=== PATIENT | male | born 1970 | race African-American/Black ===

== ENCOUNTER 2018-04-26 19:30 | Observation (INO) ==
[2018-04-27 03:31] LABS: Baso % (Auto) 0.7 % (0.0-2.0); Eos # (Auto) 0.2 th/mm3 (0.0-0.4); Eos % (Auto) 3.3 % (0.0-4.0); Hemoglobin 16.7 gm/dL (13.0-17.0); Lymph # (Auto) 2.6 th/mm3 (1.0-4.8); Lymph % (Auto) 50.6 % (9.0-44.0); Mean Corpuscular HGB Conc 35.6 % (32.0-36.0); Mean Corpuscular Hemoglobin 31.3 pg (27.0-34.0); Mean Corpuscular Volume 87.7 fL (80.0-100.0); Mean Platelet Volume 7.8 fL (7.0-11.0); Mono # (Auto) 0.6 th/mm3 (0.0-0.9); Mono % (Auto) 11.4 % (0.0-8.0); Neut # (Auto) 1.8 th/mm3 (1.8-7.7); Platelet Count 177 th/mm3 (150-450); Red Blood Count 5.35 mil/mm3 (4.50-5.90); Red Cell Distribution Width 14.2 % (11.6-17.2); White Blood Count 5.1 th/mm3 (4.0-11.0)
[2018-04-27 03:33] LABS: INR 1.1 Ratio; Prothrombin Time 10.9 sec (9.8-11.6)
--- NOTE | 2018-04-27 03:35 | XR ---
EXAM DATE: 04/27/2018 3:31 AM EDT AGE/SEX: 47 years / Male INDICATIONS: . Short of breath. CLINICAL DATA: This is the patient's initial encounter. Patient reports that signs and symptoms have been present for 1 day and indicates a pain score of 0/10. MEDICAL/SURGICAL HISTORY: None. None. COMPARISON: No prior exams available for comparison. FINDINGS: Cardiomegaly present with mild edema pattern. No significant effusion. No pneumothorax. CONCLUSION: Mild congestive heart failure. Electronically signed by: Donovan Mckeon MD 04/27/2018 3:34 AM EDT
[2018-04-27 03:42] LABS: Alanine Aminotransferase 41 U/L (12-78); Albumin 3.9 g/dL (3.4-5.0); Anion Gap 7 meq/L (5-15); Aspartate Aminotransferase 28 U/L (15-37); Blood Urea Nitrogen 15 mg/dL (7-18); Calcium 8.3 mg/dL (8.5-10.1); Carbon Dioxide 27.2 meq/L (21.0-32.0); Chloride 108 meq/L (98-107); Glomerular Filtration Rate 80 mL/min (>89); Glucose,Random 126 mg/dL (74-106); Potassium 3.4 meq/L (3.5-5.1); Sodium 142 meq/L (136-145)
--- NOTE | 2018-04-27 03:42 | CT ---
EXAM DATE: 04/27/2018 3:13 AM EDT AGE/SEX: 47 years / Male INDICATIONS: Dizziness. CLINICAL DATA: This is the patient's initial encounter. Patient reports that signs and symptoms have been present for 3 days and indicates a pain score of 0/10. MEDICAL/SURGICAL HISTORY: None. None. RADIATION DOSE: 56.35 CTDI (mGy) COMPARISON: No prior exams available for comparison. TECHNIQUE: CT of the head without contrast. Using automated exposure control and adjustment of the mA and/or kV according to patient size, radiation dose was kept as low as reasonably achievable to ob tain optimal diagnostic quality images. DICOM format image data is available electronically for revi ew and comparison. FINDINGS: Cerebrum: The ventricles are normal for age. No evidence of midline shift, mass lesion, hemorrhage or acute infarction. No extraaxial fluid collections are seen. Posterior Fossa: The cerebellum and brainstem are intact. The 4th ventricle is midline. The cerebe llopontine angle is unremarkable. Extracranial: The visualized portion of the orbits is intact. Skull: The calvaria is intact. No evidence of skull fracture. CONCLUSION: 1. No acute intracranial abnormalities. Electronically signed by: Donovan Mckeon MD 04/27/2018 3:41 AM EDT
[2018-04-27 03:46] LABS: Alkaline Phosphatase 62 U/L (45-117); Creatine Kinase 282 U/L (39-308); Total Protein 8.1 g/dL (6.4-8.2)
[2018-04-27 03:49] LABS: Bilirubin,Urine Negative (Negative); Clarity,Urine Clear (Clear); Color,Urine Yellow (Yellw/Straw); Glucose,Urine (UA) Negative (Negative); Leukocyte Esterase,Urine Negative (Negative); Mucus,Urine Few /lpf (Occasional); Nitrite,Urine Negative (Negative); Specific Gravity,Urine 1.025 (1.002-1.035); Squamous Epithelial Cell,Urine <1 /hpf (0-5)
[2018-04-27 03:58] LABS: Creatine Kinase MB 2.3 ng/mL (0.5-3.6)
--- NOTE | 2018-04-27 04:27 | ED ---
[facility] General Chief complaint: Dizziness Stated complaint: Dizzy Time Seen by Provider: 04/27/18 02:56 Source: patient Limitations: no limitations History of Present Illness HPI narrative: The patient is a 47 year old male who presents to the [facility] emergency department with a history of lightheaded sensation with bending over and then standing up that first began on Thursday. He reports that it is associated with a sensation of being short of breath and having a tightening sensation in the center of his chest. He denies having any recent vomiting or diarrhea. He denies having any recent fevers or chills, cough or congestion. The patient reports that his primary care physician is in [place]. He has been in the area for approximately 1 month. He reports that his urine has looked darker than usual and has also had a stronger odor this evening. He denies having any dysuria, urinary frequency, or urinary urgency. He denies having any prior history of hyperlipidemia, hypertension, or diabetes mellitus. He denies smoking. He denies any prior history of coronary artery disease, DVT, or PE. He denies having any lower extremity edema, calf pain, or erythema. On review of systems otherwise, the patient denies having any neck pain, abdominal pain, or neurologic symptoms. Related Data Home Medications Medication Instructions Recorded Confirmed No Known Home Medications 04/27/18 04/27/18 Allergies Allergy/AdvReac Type Severity Reaction Status Date / Time No Known Allergies Allergy Verified 04/26/18 22:05 Review of Systems ROS Unobtainable All other systems reviewed negative except as stated in HPI [facility] Medical History Medical History Patient denies medical problems (Acute) Surgical History Surgical History No history of previous surgery (Acute) Social History Social History Substance History: No History of Abuse Smoking Status: Never smoker How Often Do You Have a Drink Containing Alcohol: Monthly or less Recent Travel in [facility] within the Last 8 Weeks: No Recent Out of Country Travel within the Last 8 Weeks: No Immunization History Tetanus Immunization: Unsure Hx Influenza Vaccine This Season: No Exam Const General: healthy appearing, no acute distress and well developed Nutritional Appearance: well nourished Orientation: alert, awake and oriented x3 HENMT Head: normocephalic and atraumatic Nose: no nasal discharge and no epistaxis Mouth: moist mucous membranes Throat: posterior oropharynx normal Eyes Sclera: normal sclerae Pupils: PERRL Neck Neck: trachea midline and no JVD Resp Effort & Inspection: no use of accessory muscles Auscultation: clear to auscultation bilaterally Cardio Rate: regular rate Rhythm: regular rhythm Heart Sounds: no gallops, murmur (1/6 to 2/6 systolic murmur is audible. No gallops or rubs.) and no rubs GI Inspection: non-distended Palpation: soft, no hepatosplenomegaly and nontender Back/Spine/Pelvis Back: no CVA tenderness Cervical Spine: normal cervical lordosis Thoracic/Lumbar Spine: thoracic and lumbar spine normal to inspection Skin General: dry skin (warm) Neuro General: alert, awake and oriented x3 Cranial Nerves: CN's II-XI intact bilaterally Speech: speech normal Motor: no movement abnormalities noted Sensory Exam: no sensory deficits noted Extrem General: normal to inspection, no clubbing, no cyanosis and no edema Psych Mood: congruent mood Affect: normal affect Judgment: judgment good Course Initial Documented Vital Signs Temperature 97.7 F 04/26/18 22:00 Pulse Rate 74 04/26/18 22:00 Respiratory Rate 16 04/26/18 22:00 Blood Pressure 135/93 H 04/26/18 22:00 Pulse Oximetry 95 04/26/18 22:00 Last Documented Vital Signs Temperature 97.7 F 04/26/18 22:00 Pulse Rate 67 04/27/18 05:00 Respiratory Rate 17 04/27/18 05:00 Blood Pressure 133/92 H 04/27/18 05:00 Pulse Oximetry 98 04/27/18 05:00 Medical Decision Making MDM Narrative Medical decision making narrative: During the course of the patient's emergency department visit, the patient's history, examination, and differential diagnosis were reviewed with the patient. The patient was placed on a cafeteria monitor with oximetry and frequent blood pressure monitoring. The patient had IV access obtained and blood work sent for analysis. A workup ensued to evaluate for underlying causes of the patient's symptoms including dehydration, versus orthostasis, versus cardiac arrhythmia, versus acute coronary syndrome. Orthostatic vital signs were done and negative. The patient was initially provided normal saline 1 L IV fluid bolus. The patient was given aspirin 324 mg p.o. 1. The patient's laboratory studies are remarkable for a white count of 5.1, platelets 177 with 11.4 monocytes, hemoglobin is 16.7, INR 1.1, chemistries remarkable for a troponin I of less than 0.02, glucose 126, potassium 3.4, GFR of 80, chloride 108, calcium 8.3, urinalysis showed no acute abnormality, CPK is within normal limits at 282 with a normal MB. Imaging studies were remarkable for a CT scan of the brain that showed no acute intracranial abnormality. Chest x-ray was read by the reading radiologist as showing mild congestive heart failure with cardiomegaly. The patient's BNP is within normal limits, therefore I suspect that this haziness is not related to acute pulmonary edema or CHF. Additionally, the patient on examination has no crackles. The patient will be admitted to the chest pain center for rule out serial cardiac enzyme protocol, and consideration for stress testing given the symptoms that he is been experiencing intermittently over the last 3 days. The patient's results were discussed with the patient, including the plan of care. I explained that further testing and/ or monitoring is indicated based on the patient's history, examination, and/ or laboratory findings. Therefore, I recommended admission for additional evaluation. The patient expressed understanding and was agreeable with this plan. The patient was admitted to the hospital in stable condition and sent to a bed under the care of the [facility]. Differential Diagnosis Differential Diagnosis: dehydration, versus orthostasis, versus cardiac arrhythmia, versus acute coronary syndrome Medical Records Medical records reviewed: Yes I reviewed the patient's medical records. Lab Data Lab results reviewed: Yes I reviewed the patient's lab results. Result diagrams: 04/27/18 03:06 04/27/18 03:06 Lab Results 04/27/18 04/27/18 04/27/18 Range/Units 03:05 03:06 03:06 WBC 5.1 (4.0-11.0) th/mm3 RBC 5.35 (4.50-5.90) mil/mm3 Hgb 16.7 (13.0-17.0) gm/dL Hct 47.0 (39.0-51.0) % MCV 87.7 (80.0-100.0) fL MCH 31.3 (27.0-34.0) pg MCHC 35.6 (32.0-36.0) % RDW 14.2 (11.6-17.2) % Plt Count 177 (150-450) th/mm3 MPV 7.8 (7.0-11.0) fL Neut % (Auto) 34.0 (16.0-70.0) % Lymph % (Auto) 50.6 H (9.0-44.0) % Gilchrist % (Auto) 11.4 H (0.0-8.0) % Eos % (Auto) 3.3 (0.0-4.0) % Baso % (Auto) 0.7 (0.0-2.0) % Neut # (Auto) 1.8 (1.8-7.7) th/mm3 Lymph # (Auto) 2.6 (1.0-4.8) th/mm3 Gilchrist # (Auto) 0.6 (0.0-0.9) th/mm3 Eos # (Auto) 0.2 (0.0-0.4) th/mm3 Baso # (Auto) 0.0 (0.0-0.2) th/mm3 WBC Differential . Differential Comment Auto diff final PT 10.9 (9.8-11.6) sec INR 1.1 Ratio Sodium (136-145) meq/L Potassium (3.5-5.1) meq/L Chloride (98-107) meq/L Carbon Dioxide (21.0-32.0) meq/L Anion Gap (5-15) meq/L BUN (7-18) mg/dL Creatinine (0.60-1.30) mg/dL Estimated GFR (>89) mL/min Random Glucose (74-106) mg/dL Calcium (8.5-10.1) mg/dL Total Bilirubin (0.2-1.0) mg/dL AST (15-37) U/L ALT (12-78) U/L Alkaline Phosphatase (45-117) U/L Total Creatine Kinase (39-308) U/L CK-MB (CK-2) (0.5-3.6) ng/mL Troponin I (0.02-0.05) ng/mL B-Natriuretic Peptide (0-100) pg/mL Total Protein (6.4-8.2) g/dL Albumin (3.4-5.0) g/dL Urine Color Yellow (Yellw/Straw) Urine Clarity Clear (Clear) Urine pH 5.0 (5.0-8.5) Ur Specific Rodney 1.025 (1.002-1.035) Urine Protein Negative (Neg-Trace) mg/dL Urine Glucose (UA) Negative (Negative) mg/dL Urine Ketones Negative (Negative) mg/dL Urine Occult Blood Negative (Negative) Urine Nitrate Negative (Negative) Urine Bilirubin Negative (Negative) Urine Urobilinogen Less than 2 (Less than 2) mg/dL Ur Leukocyte Esterase Negative (Negative) Urine RBC Less than 1 (0-3) /hpf Urine WBC Less than 1 (0-5) /hpf Ur Squamous Epith Cells <1 (0-5) /hpf Urine Mucus Few H (Occasional) /lpf Micro UA Comment Culture not ind Urine Culture Comments Culture not ind 04/27/18 04/27/18 Range/Units 03:06 03:06 WBC (4.0-11.0) th/mm3 RBC (4.50-5.90) mil/mm3 Hgb (13.0-17.0) gm/dL Hct (39.0-51.0) % MCV (80.0-100.0) fL MCH (27.0-34.0) pg MCHC (32.0-36.0) % RDW (11.6-17.2) % Plt Count (150-450) th/mm3 MPV (7.0-11.0) fL Neut % (Auto) (16.0-70.0) % Lymph % (Auto) (9.0-44.0) % Gilchrist % (Auto) (0.0-8.0) % Eos % (Auto) (0.0-4.0) % Baso % (Auto) (0.0-2.0) % Neut # (Auto) (1.8-7.7) th/mm3 Lymph # (Auto) (1.0-4.8) th/mm3 Gilchrist # (Auto) (0.0-0.9) th/mm3 Eos # (Auto) (0.0-0.4) th/mm3 Baso # (Auto) (0.0-0.2) th/mm3 WBC Differential Differential Comment PT (9.8-11.6) sec INR Ratio Sodium 142 (136-145) meq/L Potassium 3.4 L (3.5-5.1) meq/L Chloride 108 H (98-107) meq/L Carbon Dioxide 27.2 (21.0-32.0) meq/L Anion Gap 7 (5-15) meq/L BUN 15 (7-18) mg/dL Creatinine 1.18 (0.60-1.30) mg/dL Estimated GFR 80 L (>89) mL/min Random Glucose 126 H (74-106) mg/dL Calcium 8.3 L (8.5-10.1) mg/dL Total Bilirubin 0.3 (0.2-1.0) mg/dL AST 28 (15-37) U/L ALT 41 (12-78) U/L Alkaline Phosphatase 62 (45-117) U/L Total Creatine Kinase 282 (39-308) U/L CK-MB (CK-2) 2.3 (0.5-3.6) ng/mL Troponin I Less than 0.02 L (0.02-0.05) ng/mL B-Natriuretic Peptide 41 (0-100) pg/mL Total Protein 8.1 (6.4-8.2) g/dL Albumin 3.9 (3.4-5.0) g/dL Urine Color (Yellw/Straw) Urine Clarity (Clear) Urine pH (5.0-8.5) Ur Specific Rodney (1.002-1.035) Urine Protein (Neg-Trace) mg/dL Urine Glucose (UA) (Negative) mg/dL Urine Ketones (Negative) mg/dL Urine Occult Blood (Negative) Urine Nitrate (Negative) Urine Bilirubin (Negative) Urine Urobilinogen (Less than 2) mg/dL Ur Leukocyte Esterase (Negative) Urine RBC (0-3) /hpf Urine WBC (0-5) /hpf Ur Squamous Epith Cells (0-5) /hpf Urine Mucus (Occasional) /lpf Micro UA Comment Urine Culture Comments Imaging Data Radiologist's impression: Chest X-Ray 04/27/18 03:02 CONCLUSION: Mild congestive heart failure. Head CT 04/27/18 03:02 CONCLUSION: 1. No acute intracranial abnormalities. ECG Data Attestation: I personally reviewed and interpreted this ECG as follows: Interpretation: The patient had an EKG done on arrival that shows a sinus rhythm heart rate of 68, QRS duration 104 ms, QTC [address] segment elevation. T waves are inverted in lead III, V1. Left axis deviation is noted. Discharge Plan Discharge Disposition Patient Disposition: 30 Still Patient Physicians Team ED Provider: Lilibeth Armstrong Primary Care Provider: Primary Care Nunu Prado Rxs /Orders / Referrals /Forms Prescriptions: No Action No Known Home Medications RF: 0 Status ED Status: With Doctor
[2018-04-27] MEDS ORDERED: Sod Chloride 0.9% Inj 1,000 ML IV.SIG ONE (04:28)
[2018-04-27] MEDS ORDERED: Acetaminophen 500 MG Tablet PO PRN (05:59)
[2018-04-27 06:23] VITALS: RESP 16; O2SAT 97
[2018-04-27 07:06] LABS: Creatine Kinase 228 U/L (39-308)
--- NOTE | 2018-04-27 10:05 | XR ---
EXAM DATE: 04/27/2018 9:59 AM EDT AGE/SEX: 47 years / Male INDICATIONS: . Shortness of breath. Syncope. CLINICAL DATA: This is the patient's initial encounter. Patient reports that signs and symptoms have been present for 2 days and indicates a pain score of 0/10. MEDICAL/SURGICAL HISTORY: None. None. COMPARISON: [facility] [place]ST 1V SINGLE AP, 04/27/2018. . FINDINGS: Improving diffuse patchy interstitial and perihilar alveolar opacities. Cardiac silhouette is mildly enlarged with prominent central pulmonary vascularity. Remainder of exam is unchanged. CONCLUSION: 1. Improved pulmonary edema pattern. Electronically signed by: Santhosh Simons MD 04/27/2018 10:04 AM EDT
[2018-04-27 10:40] LABS: Creatine Kinase 196 U/L (39-308)
--- NOTE | 2018-04-27 10:52 | P.HPCA ---
History of Present Illness Primary Care Physician: No Primary Care Physician Chief Complaint: Chest pain and dizziness History of Present Illness: This is a 47-year-old male that presents to ED via private vehicle with complaint of discomfort in his chest that he describes as a tightness in the center that has been intermittent for a few days. Nothing in particular seems to bring on the discomfort other than bending over and and then stands back up. When it occurs will last a few minutes. He also states he gets dizzy when he bends forward and then stands back up. Denies headache. Denies shortness of breath. Denies inspirational chest discomfort. He has been here from [place] for over a month. Denies prior history of CAD however cannot recall any stress testing in the past. Denies coughing, runny nose, calf pain or swelling. Currently asymptomatic. Patient denies smoking. Denies family history of CAD. Denies prior surgeries. - Diagnosis (1) Chest pain Inpatient Certification: I certify that the inpatient services were ordered in accordance with Medicare regulations governing the order. This includes certification that hospital inpatient services are reasonable and necessary and in the case of services not specified as inpatient-only under 42 CFR 419.22(n), that they are appropriately provided as inpatient services in accordance to with the 2-midnight benchmark under 43 CFR 412.3(e) Review of Systems General: Patient denies fevers, chills. He is vacationing in this area from [place] for the last month. HEENT: Patient denies headache, sore throat, difficulty swallowing. Cardiovascular: Has the chest discomfort as mentioned above. Denies sensation of heart beating rapidly or irregularly. No syncope. Denies diaphoresis. Respiratory: Denies shortness of breath or inspirational chest discomfort. Denies coughing wheezing or hemoptysis. GI: Patient denies nausea, vomiting, diarrhea, abdominal pain, bloody stools. Musculoskeletal: Patient denies joint pain or edema. Denies calf pain or edema. Neurovascular: Patient denies numbness, tingling, weakness in extremities. Denies headache. Endocrine: Denies polyuria and polydipsia. Hematologic: Denies easy bruising. Skin: Denies rash or itching. PMFSH - History History Provided By: Patient - Medical History Medical History: Medical History (Last Reviewed 04/27/18 @ 04:25 by Lilibeth Armstrong MD) Patient denies medical problems - Surgical History Surgical History: Surgical History (Last Reviewed 04/27/18 @ 04:25 by Lilibeth Armstrong MD) No history of previous surgery - Tobacco History Smoking Status: Never smoker - Alcohol History How Often Do You Have a Drink Containing Alcohol: Monthly or less - Substance Use History Substance History: No History of Abuse - Travel History Recent Travel in the [place] Within the Last 8 Weeks: No Recent Travel Out of the Country Within the Last 8 Weeks: No - Immunization History Tetanus Immunization: Unsure Hx Influenza Vaccine This Season: No Medications and Allergies Active Medications: Active Medications Acetaminophen (Tylenol) 500 mg PO Q4H PRN PRN Reason: HEADACHE Clonidine HCl (Catapres) 0.1 mg PO Q6H PRN PRN Reason: SBP >165 OR DBP > 110 Sodium Chloride (Ns Flush) 2 ml IV.FLUSH BID MAXIMO Sodium Chloride (Ns Flush) 2 ml IV.FLUSH PRN PRN PRN Reason: FLUSH AFTER USING IV ACCESS Allergies Allergy/AdvReac Type Severity Reaction Status Date / Time No Known Allergies Allergy Verified 04/26/18 22:05 Home Medications Medication Instructions Recorded Confirmed Type No Known Home Medications 04/27/18 04/27/18 History Exam Vital signs: Vital Signs 04/26/18 22:00 04/27/18 05:00 04/27/18 06:22 Temperature 97.7 F Pulse Rate 74 67 68 Respiratory Rate 16 17 16 Blood Pressure 135/93 H 133/92 H 135/93 H Pulse Oximetry 95 98 97 04/27/18 07:50 Temperature Pulse Rate 70 Respiratory Rate 16 Blood Pressure 135/93 H Pulse Oximetry Intake & Output 04/26/18 04/27/18 04/27/18 18:59 06:59 18:59 Intake Total 1000 / 1000 Balance 1000 / 1000 Weight 81.647 kg Intake: IV 1000 / 1000 NS Inj 1,000 ML @ Wide Open IV. 1000 / 1000 SIG BOLUS ONE Rx#:[id number] Narrative: GENERAL: This is a well-nourished, well-developed patient, in no apparent distress. Patient speaks in clear complete sentences. Patient is pleasant. HEENT: Head is atraumatic and normocephalic. Neck is supple without lymphadenopathy and trachea is midline. No JVD or carotid bruits. CARDIOVASCULAR: Regular rate and rhythm without murmurs, gallops, or rubs. RESPIRATORY: Clear to auscultation. Breath sounds equal bilaterally. No wheezes , rales, or rhonchi. Chest wall is nontender. No use of accessory muscles. GASTROINTESTINAL: Abdomen is nontender, nondistended. Abdomen soft. No obvious pulsatile mass or bruit. No CVA tenderness. Strong femoral pulses bilaterally. Normal bowel sounds in all quadrants. MUSCULOSKELETAL: Patient is moving upper and lower extremities freely. No calf tenderness or edema, no Homans sign. Strong pulses in upper and lower extremities. NEUROLOGICAL: Patient is alert and oriented. Cranial nerves 2-12 are grossly intact. No focal deficits and speech is clear. SKIN: No rash and turgor is normal. Results 04/27/18 03:06 04/27/18 03:06 Cardiac Enzymes 04/27/18 04/27/18 04/27/18 Range/Units 03:06 03:06 06:13 AST 28 (15-37) U/L CK-MB (CK-2) 2.3 (0.5-3.6) ng/mL Troponin I Less than 0.02 L Less than 0.02 L (0.02-0.05) ng/mL B-Natriuretic Peptide 41 (0-100) pg/mL 04/27/18 Range/Units 09:33 AST (15-37) U/L CK-MB (CK-2) (0.5-3.6) ng/mL Troponin I Less than 0.02 L (0.02-0.05) ng/mL B-Natriuretic Peptide (0-100) pg/mL Coagulation 04/27/18 04/27/18 Range/Units 03:06 03:06 PT 10.9 (9.8-11.6) sec B-Natriuretic Peptide 41 (0-100) pg/mL CBC 04/27/18 Range/Units 03:06 WBC 5.1 (4.0-11.0) th/mm3 RBC 5.35 (4.50-5.90) mil/mm3 Hgb 16.7 (13.0-17.0) gm/dL Hct 47.0 (39.0-51.0) % Plt Count 177 (150-450) th/mm3 Neut # (Auto) 1.8 (1.8-7.7) th/mm3 Lymph # (Auto) 2.6 (1.0-4.8) th/mm3 Vigo # (Auto) 0.6 (0.0-0.9) th/mm3 Eos # (Auto) 0.2 (0.0-0.4) th/mm3 Baso # (Auto) 0.0 (0.0-0.2) th/mm3 Comprehensive Metabolic Panel 04/27/18 Range/Units 03:06 Sodium 142 (136-145) meq/L Potassium 3.4 L (3.5-5.1) meq/L Chloride 108 H (98-107) meq/L Carbon Dioxide 27.2 (21.0-32.0) meq/L BUN 15 (7-18) mg/dL Creatinine 1.18 (0.60-1.30) mg/dL Calcium 8.3 L (8.5-10.1) mg/dL AST 28 (15-37) U/L ALT 41 (12-78) U/L Alkaline Phosphatase 62 (45-117) U/L Total Protein 8.1 (6.4-8.2) g/dL Albumin 3.9 (3.4-5.0) g/dL Intake and Output 04/26/18 04/27/18 04/27/18 22:59 06:59 14:59 Intake Total 1000 / 1000 Balance 1000 / 1000 Intake: IV 1000 / 1000 NS Inj 1,000 ML @ Wide Open IV. 1000 / 1000 SIG BOLUS ONE Rx#:[id number] Other: Weight 81.647 kg EKG interpretations - EKG EKG shows: sinus rhythm (EKGs are sinus rhythm nonspecific T-wave changes.) Caprini VTE Risk Assessment Caprini VTE Risk Assessment: No/Low Risk (score <= 1) Caprini Risk Assessment Model: Point Value = 1 Point Value = 2 Point Value = 3 Point Value = 5 Age 41-60 Minor surgery BMI > 25 kg/m2 Swollen legs Varicose veins or History of unexplained or recurrent spontaneous Oral contraceptives or hormone replacement Sepsis (< 1 month) Serious lung disease, including pneumonia (< 1 month) Abnormal pulmonary function Acute myocardial infarction Congestive heart failure (< 1 month) History of inflammatory bowel disease Medical patient at bed rest Age 61-74 Arthroscopic surgery Major open surgery (> 45 min) Laparoscopic surgery (> 45 min) Malignancy Confined to bed (> 72 hours) Immobilizing plaster cast Central venous access Age >= 75 History of VTE Family history of VTE Factor V Leiden Prothrombin [id number] Lupus anticoagulant Anticardiolipin antibodies Elevated serum homocysteine Heparin-induced thrombocytopenia Other congenital or acquired thrombophilia Stroke (< 1 month) Elective arthroplasty Hip, pelvis, or leg fracture Acute spinal cord injury (< 1 month) Prophylaxis Regimen: Total Risk Factor Score Risk Level Prophylaxis Regimen 0-1 Low Early ambulation 2 Moderate Order ONE of the following: *Sequential Compression Device (SCD) *Heparin 5000 units SQ BID 3-4 Higher Order ONE of the following medications: *Heparin 5000 units SQ TID *Enoxaparin/Lovenox 40 mg SQ daily (WT < 150 kg, CrCl > 30 mL/min) *Enoxaparin/Lovenox 30 mg SQ daily (WT < 150 kg, CrCl > 10-29 mL/min) *Enoxaparin/Lovenox 30 mg SQ BID (WT < 150 kg, CrCl > 30 mL/min) AND/OR *Sequential Compression Device (SCD) 5 or more Highest Order ONE of the following medications: *Heparin 5000 units SQ TID (Preferred with Epidurals) *Enoxaparin/Lovenox 40 mg SQ daily (WT < 150 kg, CrCl > 30 mL/min) *Enoxaparin/Lovenox 30 mg SQ daily (WT < 150 kg, CrCl > 10-29 mL/min) *Enoxaparin/Lovenox 30 mg SQ BID (WT < 150 kg, CrCl > 30 mL/min) AND *Sequential Compression Device (SCD) Assessment and Plan - Assessment (1) Chest pain Code(s): R07.9 - Chest pain, unspecified Status: Acute - Plan * Chest pain: Patient has had serial cardiac enzymes and EKGs for ruling out purposes. He has been seen by Dr. Ferrera of cardiology in the chest pain center and will undergo a nuclear ETT. Patient would be discharged home if the stress test is nonischemic with instructions to follow-up with PCP. Initial chest x-ray read by radiologist as mild CHF and resolved were discussed with Dr. Ferrera, on physical exam no evidence of CHF and BNP is normal at 41. Repeated chest x-ray shows improvement but again no signs of failure on examination and BMP was normal. Patient will need follow-up with PCP after being discharged and should return to ED for interval issues. Patient is stable at this time. He is agreeable to this plan.
[2018-04-27 14:14] VITALS: BP 123/70; PULSE 72; TEMP 97.4
--- NOTE | 2018-04-27 16:37 | TR ---
Date Performed: 04/27/2018 Time Performed: 15:05:22 DOCTOR: Kaylynn Ferrera DRUG LIST: CLINICAL HISTORY: REASON FOR TEST: Chest pain REASON FOR ENDING: OBSERVATION: CONCLUSION: KRYSTAL PROTOCOL NUC ETT. NO CP OR SOB.Maximum QZ=435 Max HR Achieved=91.0 Maximum B P=172/94 Total Exercise Time=9:15 COMMENTS: No ischemia, max HR 157 bpm
--- NOTE | 2018-04-27 16:40 | ECG ---
Date Performed: 04/27/2018 Time Performed: 09:25:16 PTAGE: 47 years EKG: Sinus rhythm MARKED LEFT AXIS DEVIATION MODERATE INTRAVENTRICULAR CONDUCTION DELAY ABNORMAL ECG Since PREVIOUS TRACING , no significant change noted DOCTOR: Kaylynn Ferrera Interpretating Date/Time 04/27/2018 16:39:58
--- NOTE | 2018-04-27 17:23 | NM ---
EXAM DATE: 04/27/2018 4:44 PM EDT AGE/SEX: 47 years / Male INDICATIONS: Angina. Chest pain. CLINICAL DATA: This is the patient's initial encounter. Patient reports that signs and symptoms have been present for 1 day and indicates a pain score of 0/10. MEDICAL/SURGICAL HISTORY: None. None. COMPARISON: No prior exams available for comparison. DOSE: 8.5 mCi Tc 99m Myoview at rest 35.0 mCi [id number] at stress REST HEART RATE: 80 BPM TARGET HEART RATE: 147 BPM MAX HEART RATE: 157 BPM REST BLOOD PRESSURE: 112/62 mmHg MAX BLOOD PRESSURE: 154/92 mmHg EJECTION FRACTION: 58 % TECHNIQUE: The patient underwent upright treadmill exercise in the chest pain center. Continuous EC G tracing was monitored during stress. Gated SPECT imaging was performed after stress, and conventio nal SPECT imaging was performed at rest. The examination was performed on a SPECT/CT scanner, both a ttenuation-corrected and non-corrected datasets were reviewed. FINDINGS: Distribution: The maximum perfused segment anterolateral at stress is in the wall. Perfusion: The pattern of perfusion at stress is within normal limits. Gated Study: There are intact wall motion and wall thickening without hypokinetic or dyskinetic segme nts. The ejection fraction is calculated at 58%. RISK CATEGORY: Low (<1% Annual Motality Rate) CONCLUSION: 1. Negative examination. Electronically signed by: Jaya Baker MD 04/27/2018 5:22 PM EDT
--- NOTE | 2018-04-27 20:22 | ECG ---
Date Performed: 04/27/2018 Time Performed: 06:20:23 PTAGE: 47 years EKG: Sinus rhythm MARKED LEFT AXIS DEVIATION MODERATE INTRAVENTRICULAR CONDUCTION DELAY ABNORMAL ECG PREVIOUS TRACING : 04/27/2018 04.31 No significant change DOCTOR: Steven Sweeney Interpretating Date/Time 04/27/2018 20:21:54
--- NOTE | 2018-04-27 20:40 | ECG ---
Date Performed: 04/27/2018 Time Performed: 04:31:57 PTAGE: 47 years EKG: Sinus rhythm MARKED LEFT AXIS DEVIATION POSSIBLE LEFT VENTRICULAR HYPERTROPHY ABNORMAL ECG NO PREVIOUS TRACING No significant change DOCTOR: Steven Sweeney Interpretating Date/Time 04/27/2018 20:39:55
--- NOTE | 2018-04-29 12:09 | ECG ---
Date Performed: 04/27/2018 Time Performed: 13:01:33 PTAGE: 47 years EKG: Sinus rhythm MARKED LEFT AXIS DEVIATION MODERATE INTRAVENTRICULAR CONDUCTION DELAY ST ELEVATION, PROBABLY EARLY R EPOLARIZATION ABNORMAL ECG Since PREVIOUS TRACING , no significant change noted DOCTOR: Kaylynn Fererra Interpretating Date/Time 04/29/2018 12:07:43
== END 2018-04-27 19:16 | disposition home or self-care (01) ==
LOC: NEPGCP 19:30 → NEDA 19:30 → NEPE 19:30 → NEDA 04-27 09:23 → NEPGCP 04-27 16:38
PROVIDERS: ADMIT Internal Medicine Cardiovascular Disease; ATTEND Internal Medicine Cardiovascular Disease
DX: I50.9 Heart failure, unspecified; R07.89 Other chest pain